=== PATIENT | male | born 1985 | race Caucasian/White ===

== ENCOUNTER 2017-02-27 23:05 | Emergency (ER) | payer SELFPAY | END 2017-02-28 02:07 | disposition home or self-care (01) | LOC: ER 23:05 | DX: S93.401A Sprain of unspecified ligament of right ankle, initial encounter (principal); M54.6 Pain in thoracic spine; R10.9 Unspecified abdominal pain; F17.210 Nicotine dependence, cigarettes, uncomplicated; V43.52XA Car driver injured in collision with other type car in traffic accident, initial encounter | CPT/HCPCS: 36415 ==